=== PATIENT | female | born 1980 | race Caucasian/White ===

== ENCOUNTER → 2019-11-01 | Outpatient (CLI) | payer OTHER ==
--- NOTE | 2019-11-01 08:49 | RAD ---
EXAM DESCRIPTION: Wrist,Right 3 Views CLINICAL HISTORY: PAIN IN RIGHT WRIST COMPARISON: None. TECHNIQUE: 3 views right FINDINGS: I see no bone joint or soft tissue abnormality. IMPRESSION: Normal right wrist. Electronically signed by: Oscar Paul MD 11/01/2019 8:47 AM CDT
--- NOTE | 2019-11-01 08:49 | RAD ---
EXAM DESCRIPTION: Wrist,Left 3 Views CLINICAL HISTORY: PAIN IN LEFT WRIST COMPARISON: None. TECHNIQUE: 3 views left FINDINGS: I see no bone joint or soft tissue abnormality. IMPRESSION: Normal left wrist. Electronically signed by: Oscar Paul MD 11/01/2019 8:47 AM CDT
--- NOTE | 2019-11-01 09:00 | RAD ---
EXAM DESCRIPTION: Elbow,Left 3 Views CLINICAL HISTORY: PAIN IN LEFT ELBOW COMPARISON: None. TECHNIQUE: 3 views left FINDINGS: I see no bone joint or soft tissue abnormality. IMPRESSION: Normal left elbow. Electronically signed by: Oscar Paul MD 11/01/2019 8:59 AM CDT
--- NOTE | 2019-11-01 09:01 | RAD ---
EXAM DESCRIPTION: Elbow,Right 3 Views CLINICAL HISTORY: PAIN IN RIGHT ELBOW COMPARISON: None. TECHNIQUE: 3 views right FINDINGS: I see no bone joint or soft tissue abnormality. IMPRESSION: Normal right elbow. Electronically signed by: Oscar Paul MD 11/01/2019 8:59 AM CDT
== END ==
LOC: RAD 08:09
PROVIDERS: ATTEND Orthopaedic Surgery
DX: M25.531 Pain in right wrist (principal); M25.532 Pain in left wrist; M25.521 Pain in right elbow; M25.522 Pain in left elbow

== ENCOUNTER 2020-03-18 05:19 | Day surgery (SDC) | payer OTHER ==
[2020-03-18] MEDS ORDERED: ceFAZolin SODIUM 1 GM VIAL ONE ×2 (06:32→07:45)
[2020-03-18] MEDS ORDERED: SODIUM CHL 0.9% 100ML MINI-BAG 100 ML IVPB ONE (06:32)
[2020-03-18] MEDS ORDERED: LACTATED RINGERS 1,000 ML ONE (06:32)
[2020-03-18] MEDS ORDERED: MAGNESIUM SULFATE INJ 1 GM/2 ML VIAL ONE (07:00)
[2020-03-18] MEDS ORDERED: DEXAMETHASONE INJ 10 MG/ML VIAL ONE (07:00)
[2020-03-18] MEDS ORDERED: PROPOFOL 200 MG/20 ML VIAL IV ONE (07:00)
[2020-03-18] MEDS ORDERED: SODIUM CHLORIDE 0.9% 50 ML VIAL ONE (07:00)
[2020-03-18] MEDS ORDERED: LIDOCAINE 1% 10 ML VIAL INJ ONE (07:00)
[2020-03-18] MEDS ORDERED: BUPIVACAINE LIPOSOME 13.3 MG/ML VIAL INJ ONE ×2 (07:45→10:39)
[2020-03-18] MEDS ORDERED: BUPIVACAINE 0.25% W/EPI 50 ML VIAL INJ ONE (07:45)
[2020-03-18] MEDS ORDERED: BUPIVACAINE 0.5% 30 ML VIAL INJ ONE ×2 (07:45→10:39)
[2020-03-18] MEDS ORDERED: VANCOMYCIN HCL INJ 1,000 MG VIAL IVPB ONE ×2 (07:45→10:39)
[2020-03-18] MEDS ORDERED: fentaNYL CITRATE INJ 50 MCG/ML 2 ML AMP ONE (10:12)
[2020-03-18] MEDS ORDERED: MIDAZOLAM INJ 2 MG/2 ML VIAL ONE (10:12)
[2020-03-18] MEDS ORDERED: ceFAZolin SODIUM 1 GM VIAL IRRIG ONE (10:39)
[2020-03-18] MEDS ORDERED: DEXMEDETOMIDINE HCL 200 MCG/2 ML INJ IV ONE (10:50)
[2020-03-18] MEDS ORDERED: ONDANSETRON INJ 4 MG/2 ML VIAL ONE (13:59)
[2020-03-18 15:12] VITALS: BP 99/73
[2020-03-18 15:16] VITALS: TEMP 97.2; O2SAT 95
--- NOTE | 2020-03-28 11:22 | OP ---
DATE OF PROCEDURE: 03/18/20 PREOPERATIVE DIAGNOSIS: 1. Right carpal tunnel syndrome. 2. Right cubital tunnel syndrome. POSTOPERATIVE DIAGNOSIS: 1. Right carpal tunnel syndrome. 2. Right cubital tunnel syndrome. PROCEDURE: 1. Carpal tunnel release. 2. Ulnar nerve transposition. SURGEON: Cristopher Murphy MD. LABELLING MACHINE OPERATOR: Jatinder Almanzar CST, SARAH. ANESTHESIA: General anesthesia. COMPLICATIONS: None. FINDINGS: 1. Flattening of the median nerve across the carpal tunnel. 2. Flattening of the ulnar nerve across the cubital tunnel. INDICATION: Madelyn has a history of both symptoms on the radial and ulnar side of the hand. She and I talked about options for treatment and she elected to undergo carpal and cubital tunnel release. After discussing the risks, benefits and alternatives to operative therapy, the patient has given informed consent. PROCEDURE: The patient was brought to the Operating Room and placed in the supine position. Sedation was administered and local anesthetic was injected into the operative area under sterile conditions. After the injection of anesthetic, the arm was sterilely prepped and draped. A longitudinal incision was made directly overlying the transverse carpal ligament and blunt dissection was carried down to the ligament. The transverse carpal ligament was sharply transected along its length and a [place] elevator was used to ensure complete release of the ligament. Once release had been confirmed, the wound was thoroughly irrigated and the wound was closed with Nylon suture. Attention was focused on the elbow. An incision was made between the medial and lateral epicondylar regions. Blunt dissection was carried down to the ulnar nerve which was identified proximally. A vessel loop was passed behind the nerve and used to atraumatically mobilize the nerve from proximal to distal. The nerve was transposed medial to the medial epicondyle and the subcutaneous tissues were sewn to the medial epicondyle. Care was taken to ensure that the nerve was free of any pressure. Following that, the wounds were thoroughly irrigated. The elbow wound was closed with a combination of running and interrupted subcuticular stitches. The wounds were dressed. The patient was awoken from anesthesia and taken to Recovery. POSTOPERATIVE PLAN: The patient has been encouraged to do range of motion of the digits and will followup with us in two days. We will let her do range of motion of the elbow at that time. However, she will refrain from lifting. #[id number] [facility]
== END 2020-03-18 14:45 | disposition home or self-care (01) ==
LOC: AMB 05:19
PROVIDERS: ATTEND Orthopaedic Surgery
DX: G56.01 Carpal tunnel syndrome, right upper limb (principal); G56.21 Lesion of ulnar nerve, right upper limb; F41.9 Anxiety disorder, unspecified; E78.5 Hyperlipidemia, unspecified; R53.82 Chronic fatigue, unspecified; E11.9 Type 2 diabetes mellitus without complications; E07.9 Disorder of thyroid, unspecified; F17.200 Nicotine dependence, unspecified, uncomplicated; Z85.820 Personal history of malignant melanoma of skin; Z79.899 Other long term (current) drug therapy
CPT/HCPCS: 01710; 64718; 64721; 80307; A4216; J0690; J1100; J2250; J2405; J3010; J3370; J3475; J3490; J7050; J7120

== ENCOUNTER → 2020-05-26 | Outpatient (CLI) | payer OTHER | LOC: LAB.O 14:25 | PROVIDERS: ATTEND Orthopaedic Surgery | DX: Z01.818 Encounter for other preprocedural examination (principal) ==

== ENCOUNTER 2020-06-02 08:00 | Day surgery (SDC) | payer OTHER ==
[2020-06-11] MEDS ORDERED: LACTATED RINGERS 1,000 ML ONE (05:49)
[2020-06-11] MEDS ORDERED: SODIUM CHL 0.9% 100ML MINI-BAG 100 ML IVPB ONE (05:49)
[2020-06-11] MEDS ORDERED: ceFAZolin SODIUM 1 GM VIAL ONE (05:50)
[2020-06-11] MEDS ORDERED: LIDOCAINE 1% 10 ML VIAL INJ ONE ×2 (06:56→07:00)
[2020-06-11] MEDS ORDERED: BUPIVACAINE 0.5% 30 ML VIAL INJ ONE (06:57)
[2020-06-11] MEDS ORDERED: BUPIVACAINE LIPOSOME 13.3 MG/ML VIAL INJ ONE (06:57)
[2020-06-11] MEDS ORDERED: BUPIVACAINE 0.25% INJ 30 ML VIAL INJ ONE (06:57)
[2020-06-11] MEDS ORDERED: KETOROLAC TROMETHAMINE INJ 30 MG/ML VIAL ONE (07:00)
[2020-06-11] MEDS ORDERED: DEXAMETHASONE INJ 10 MG/ML VIAL ONE (07:00)
[2020-06-11] MEDS ORDERED: PROPOFOL 200 MG/20 ML VIAL IV ONE ×2 (07:00)
[2020-06-11] MEDS ORDERED: MAGNESIUM SULFATE INJ 1 GM/2 ML VIAL ONE (07:00)
[2020-06-11] MEDS ORDERED: MIDAZOLAM INJ 2 MG/2 ML VIAL ONE (08:03)
[2020-06-11] MEDS ORDERED: DEXMEDETOMIDINE HCL 200 MCG/2 ML INJ IV ONE (08:03)
[2020-06-11] MEDS ORDERED: KETAMINE HCL 100 MG/ML VIAL ONE (08:55)
[2020-06-11] MEDS: BUPIVACAINE 0.5% 30 ML VIAL INJ ONE ×2 (09:01→10:17)
[2020-06-11] MEDS: BUPIVACAINE LIPOSOME 13.3 MG/ML VIAL INJ ONE ×2 (09:01→10:18)
[2020-06-11] MEDS: VANCOMYCIN HCL INJ 1,000 MG VIAL IVPB ONE ×2 (09:02→10:05)
[2020-06-11] MEDS: ceFAZolin SODIUM 1 GM VIAL ONE ×2 (09:02→10:05)
[2020-06-11] MEDS ORDERED: HYDROmorphone HCL INJ 2 MG/ML VIAL ONE (10:59)
--- NOTE | 2020-06-11 11:56 | OP ---
DATE OF PROCEDURE: 06/11/20 PREOPERATIVE DIAGNOSIS: 1. Left carpal tunnel syndrome. 2. Left cubital tunnel syndrome. POSTOPERATIVE DIAGNOSIS: 1. Left carpal tunnel syndrome. 2. Left cubital tunnel syndrome. PROCEDURE: 1. Ulnar nerve transposition. 2. Carpal tunnel release. SURGEON: Cristopher Murphy MD. ART COORDINATOR: Jatinder Almanzar CST, SA-C. ANESTHESIA: General anesthesia. COMPLICATIONS: None. FINDINGS: 1. Subluxation of the ulnar nerve with entrapment across the cubital tunnel. 2. Thickening of the transverse carpal ligament with narrowing of the median nerve. INDICATION: Madelyn has severe bilateral symptoms and has had contralateral procedure done. She has requested left sided procedure. After discussing the risks, benefits and alternatives to that, the patient has given informed consent for that. PROCEDURE: The patient was brought to the Operating Room and placed in the supine position. General anesthesia was induced and the patient's arm was sterilely prepped and draped. An incision was made in the midline between the medial epicondyle and medial olecranon. Blunt dissection was carried down to the fascial layer and the nerve was identified proximally. Vessel loop was passed around the nerve and it was used to manipulate the nerve with as little trauma as possible. The nerve was freed from proximal to distal and once it became fully freed, it was transposed medial to the medial epicondyle. After irrigating the wound, the subcutaneous tissues along the medial aspect were sutured to the periosteum along the medial epicondyle. Care was taken to ensure there was no entrapment of the medial nerve in the construct. The wound was again irrigated and closed with combination of running and interrupted subcuticular stitches. Attention was then focused on the carpal tunnel. An incision was made directly overlying the transverse carpal ligament and blunt dissection was carried down to the ligament, which was sharply incised. After incision of the ligament, a [place] elevator was passed both proximally and distally to ensure complete release. Once complete release had been confirmed, the wound was thoroughly irrigated and the wound was closed with Nylon suture. Sterile dressings were placed on the wrist and the elbow. The patient was taken to the Day Surgery Unit. POSTOPERATIVE PLAN: The patient has been encouraged to do range of motion of the digits and will followup with us in two days. #[id number] [facility]
[2020-06-11 13:30] VITALS: BP 96/68; TEMP 96.6; O2SAT 96
== END 2020-06-11 12:10 | disposition home or self-care (01) ==
LOC: AMB 08:00
PROVIDERS: ATTEND Orthopaedic Surgery
DX: G56.02 Carpal tunnel syndrome, left upper limb (principal); G56.22 Lesion of ulnar nerve, left upper limb; F17.200 Nicotine dependence, unspecified, uncomplicated; Z79.1 Long term (current) use of non-steroidal anti-inflammatories (NSAID); Z79.899 Other long term (current) drug therapy
CPT/HCPCS: 01810; 36415; 64718; 64721; 80048; 80307; 81001; 85025; J0690; J1100; J1170; J1885; J2250; J3370; J3475; J3490; J7050; J7120